=== PATIENT | male | born 1985 | race Two or more races ===

== ENCOUNTER 2025-09-25 18:37 | Emergency (ER) | payer MEDICAID, OTHER ==
[~2025-09-25] VITALS: Ht 193 cm; Wt 79.0 kg
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
[2025-09-25 20:07] LABS: Hematocrit 38.9 % (41.0-53.0); Hemoglobin 12.7 g/dL (13.5-17.5); Mean Corpuscular Hemoglobin 27.7 pg (28.0-32.0); Mean Corpuscular Volume 84.4 fL (80.0-100.0); Nucleated Red Blood Cells % 0.1 %
[2025-09-25 20:16] LABS: Potassium 4.0 mmol/L (3.5-5.1); Sodium 139 mmol/L (136-145)
[2025-09-25 20:17] LABS: Anion Gap 5 (5-15); Calcium 9.5 mg/dL (8.7-10.4); Carbon Dioxide 25 mmol/L (20-31)
[2025-09-25 20:22] LABS: BUN/Creatinine Ratio 15.1 (10.0-20.0); Blood Urea Nitrogen 13 mg/dL (9-23); Chloride 109 mmol/L (98-107); Glucose 78 mg/dL (74-106)
[2025-09-25 20:36] LABS: Lipase 27 U/L (12-53)
--- NOTE | 2025-09-25 21:28 | DVH ---
Exam: CT CT AB PEL WO CON-NO ORAL OR IV History: abd pain Comparison Study: None Technique: Multidetector spiral CT of the abdomen was performed from lung bases to pubic symphysis. Imaging was performed without IV contrast. Axial, coronal and sagittal multiplanar reformats were obtained from the axial data set by the technologist. Radiation Dose : 1. Abdomen/Pelvis: CTDIvol 5.72 mGy, DLP 331.97 mGy*cm. Findings: Evaluation of solid organs is limited due to lack of intravenous contrast use. Lung Bases: No acute or significant lung base finding. Normal heart size. No pleural or pericardial effusion. Liver: The liver is normal in size. No focal lesions. Gallbladder and Biliary Tree: Unremarkable Spleen: Unremarkable Pancreas: The pancreas is grossly normal in appearance. Adrenal Glands: Unremarkable Kidneys: Kidneys are grossly normal without calculi or hydronephrosis. Bladder: Grossly unremarkable for degree of distention. Bowel: Left lower quadrant colostomy is unremarkable. Anastomoses appear intact. No obstruction. Large volume of stool throughout the colon. Ascites: Absent Lymphadenopathy: No mesenteric, retroperitoneal or periportal lymphadenopathy. Abdominal Wall and Mesentery: Unremarkable. Vasculature: The visualized abdominal aorta is normal in size and caliber. Evaluation of abdominal and pelvic vessels is limited due to lack of intravenous contrast. Pelvic Organs: Unremarkable Musculoskeletal: No aggressive focal bony lesions, acute fractures or dislocation. IMPRESSION: No acute abdominal or pelvic findings. Radiation optimization: All CT scans at this facility use at least one of these dose optimization techniques: automated exposure control mA and/or kV adjustment per patient size (includes targeted exams where dose is matched to clinical indication) or iterative reconstruction.
[2025-09-25] MEDS: KETOROLAC TROMETH 30 MG/ML 1ML VIAL IM ONE (21:52)
[2025-09-25 21:56] VITALS: O2SAT 97
[2025-09-25 21:58] VITALS: BP 115/72; PULSE 72; RESP 20; TEMP 98.1; O2SAT 97
== END 2025-09-25 22:35 | disposition home or self-care (01) ==
LOC: ER 18:37
DX: K52.9 Noninfective gastroenteritis and colitis, unspecified (principal); Z93.3 Colostomy status
CPT/HCPCS: 36415; 74176; 80048; 83690; 85025; 96372; 99285; J1885

== ENCOUNTER 2025-09-26 00:38 | Emergency (ER) | payer MEDICAID ==
[~2025-09-26] VITALS: Ht 193 cm; Wt 86.6 kg
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
[2025-09-26 01:05] LABS: Hematocrit 37.8 % (41.0-53.0); Hemoglobin 12.6 g/dL (13.5-17.5); Mean Corpuscular Hemoglobin 27.9 pg (28.0-32.0); Mean Corpuscular Volume 83.6 fL (80.0-100.0); Nucleated Red Blood Cells % 0.0 %
[2025-09-26 01:48] LABS: Acetaminophen 14.0 UG/ML (10.0-20.0); Alanine Aminotransferase 14 U/L (7-40); Albumin 4.3 g/dL (3.2-4.8); Alkaline Phosphatase 89 U/L (46-116); Anion Gap 7 (5-15); BUN/Creatinine Ratio 18.0 (10.0-20.0); Blood Urea Nitrogen 16 mg/dL (9-23); Calcium 9.0 mg/dL (8.7-10.4); Carbon Dioxide 24 mmol/L (20-31); Potassium 3.9 mmol/L (3.5-5.1); Sodium 139 mmol/L (136-145); Total Protein 7.2 g/dL (5.7-8.2)
[2025-09-26 01:49] LABS: Bilirubin, Total 0.3 mg/dL (0.2-1.0)
[2025-09-26 01:59] LABS: Chloride 108 mmol/L (98-107); Glucose 120 mg/dL (74-106); Salicylate < 3.0 mg/dL (-30)
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
[2025-09-26 07:24] LABS: Amphetamine Screen, Urine Neg (NEGATIVE); Cannabinoid Screen, Urine Pos (NEGATIVE); Urine Protein, UAD TRACE (Negative)
[2025-09-26 07:37] LABS: Barbiturate Scree,Urine Neg (NEGATIVE); Benzodiazephine Screen, Urine Neg (NEGATIVE); Cocaine Screen, Urine Neg (NEGATIVE); Opiate Scree,Urine Neg (NEGATIVE); Phencyclidine Screen, Urine Neg (NEGATIVE)
[2025-09-26] MEDS: LITHIUM CARBONATE 300 MG TAB PO ONE (10:07)
[2025-09-26] MEDS: BENZTROPINE MESY 0.5 MG TAB PO ONE (10:07)
[2025-09-26] MEDS: IBUPROFEN 800 MG TAB PO ONE (10:08)
[2025-09-26] MEDS: risperiDONE 1 MG TAB PO ONE (10:08)
[2025-09-26 19:30] VITALS: PULSE 71; RESP 18; O2SAT 100
[2025-09-27 09:55] VITALS: BP 97/52; PULSE 107; RESP 16; TEMP 97.6; O2SAT 97
== END 2025-09-27 16:41 | disposition left against medical advice (07) ==
LOC: ER 00:38 → EDBD 00:38 → ER 09-27 16:41
DX: R45.851 Suicidal ideations (principal); F25.9 Schizoaffective disorder, unspecified; F19.10 Other psychoactive substance abuse, uncomplicated; Z79.899 Other long term (current) drug therapy
CPT/HCPCS: 36415; 71045; 80053; 80307; 80329; 81001; 84484; 85025; 93005

== ENCOUNTER 2025-10-25 08:56 | Emergency (ER) | payer MEDICAID ==
[~2025-10-25] VITALS: Ht 193 cm; Wt 76.2 kg
--- NOTE | 2025-10-25 09:29 | ED.PDOC ---
Psychiatric HPI Comments 40 y.o male with PMHx of schizophrenia and substance abuse. presents to the ED for an evaluation of mental health. Patient reports he is having visual and auditory hallucinations. He states voices are telling him to kill himself and states he has a plan by overdosing on substances. He admits to injecting drugs, states " I shoot up all types of drugs" and smokes marijuana. He presents with a colostomy with no bag attached. He is unsure how long he has not had a bag but states surgery took place around May of 2022. Non compliant to medication or care of the colostomy site. Chief Complaint: Suicidal Time Seen by MD: 09:20 Reviewed Notes: Nurses Notes, Medications, Allergies Information Source: Patient Mode of Arrival: Ambulatory Severity: Unable to Care for Self Severity of Pain: None Severity of Mental Status: Moderate Severity of Symptoms: Moderate Timing: Days Duration: Since onset Presents with: Suicidal Ideation Circumstance: Medical Clearance Current substance abuse: Unknown Stressors: None History of: Schizophrenia Quality: Hallucinations Associated signs and symptoms: Other Past Medical History PAST MEDICAL HISTORY: Schizophrenia Surgical History (Other): colostomy bag Family History Family History: Reviewed,noncontributory to illness, Unknown Social History Smoker: Non-Smoker Alcohol: Denies ETOH Use Drugs: Denies Drug Use Lives In: Home Constitutional: denies: chills, diaphoresis, fatigue, fever, malaise, sweats, weakness, others EENTM: denies: blurred vision, double vision, ear bleeding, ear discharge, ear drainage, ear pain, ear ringing, eye pain, eye redness, hearing loss, mouth pain, mouth swelling, nasal discharge, nose bleeding, nose congestion, nose pain, photophobia, tearing, throat pain, throat swelling, voice changes, others Respiratory: denies: cough, hemoptysis, orthopnea, SOB at rest, shortness of breath, SOB with excertion, stridor, wheezing, others Cardiovascular: denies: chest pain, dizzy spells, diaphoresis, Dyspnea on exertion, edema, irregular heart beat, left arm pain, lightheadedness, palpitations, PND, syncope, others Gastrointestinal: denies: abdomen distended, abdominal pain, blood streaked bowels, constipated, diarrhea, dysphagia, difficulty swallowing, hematemesis, melena, nausea, poor appetite, poor fluid intake, rectal bleeding, rectal pain, vomiting, others Genitourinary: denies: burning, dysuria, flank pain, frequency, hematuria, incontinence, penile discharge, penile sore, pain, testicle pain, testicle swelling, urgency, others Neurological: denies: dizziness, fainting, headache, left sided numbness, left sided weakness, numbness, paresthesia, pre-existing deficit, right sided numbness, right sided weakness, seizure, speech problems, tingling, tremors, weakness, others Musculoskeletal: denies: back pain, gout, joint pain, joint swelling, muscle pain, muscle stiffness, neck pain, others Integumetry: denies: bruises, change in color, change in hair/nails, dryness, laceration, lesions, lumps, rash, wounds, others Allergic/Immunocompromised: denies: Difficulty Healing, Frequent Infections, Hives, Itching, others Hematologic/Lymphatic: denies: anemia, blood clots, easy bleeding, easy bruising, swollen glands, others Endocrine: denies: excessive hunger, excessive sweating, excessive thirst, excessive urination, flushing, intolerance to cold, intolerance to heat, unexplained weight gain, unexplained weight loss, others Psychiatric: reports: schizophrenia, suicidal; denies: anxiety, bipolar disorder, depression, hopeless, panic disorder, sleepless, others All Other Systems: Reviewed and Negative Physical Exam General Appearance: Moderate Distress HEENT: Normal ENT Inspection, Pharynx Normal, TMs Normal Neck: Full Range of Motion, Non-Tender, Normal, Normal Inspection Respiratory: Chest Non-Tender, Lungs Clear, No Accessory Muscle Use, No Respiratory Distress, Normal Breath Sounds Cardiovascular: No Edema, No JVD, No Murmur, No Gallop, Normal Peripheral Pulses, Regular Rate/Rhythm Breast Exam: Deferred Gastrointestinal: Other (Stoma left lower extremity) Genitalia: Deferred Pelvic: Deferred Rectal: Deferred Extremities: No calf tenderness, Normal capillary refill, Normal inspection, Normal range of motion, Non-tender, No pedal edema Musculoskeletal : Apperance: Normal Neurologic: Alert, oyster grower II-XII nml as Tested, No Motor Deficits, Normal Affect, Normal Mood, No Sensory Deficits Cerebellar Function: Normal Reflexes: Normal Skin: Dry, Normal Color, Warm Peripheral Pulses: 3+ Radial (R), 3+ Radial (L) Lymphatic: No Adenopathy Was a procedure done? Was a procedure done?: No Psych Differential Dx Psych. Differential Dx: Schizoprenia Suicidal Differential Dx: Schizoprenia, Substance Abuse X-Ray, Labs, Meds, VS Vital Signs Date Time Temp Pulse Resp B/P (MAP) Pulse Ox O2 Delivery O2 Flow Rate FiO2 10/25/25 09:58 126 19 98 Room Air 10/25/25 09:58 97.5 126 19 119/91 (100) 98 97.5 10/25/25 08:59 98.1 120 20 121/91 95 98.1 Lab Test 10/25/25 09:40 Range/Units Urine Opiates Screen Neg NEGATIVE Urine Fentanyl Screen Neg NEGATIVE Urine Barbiturates Screen Neg NEGATIVE Urine Phencyclidine Screen Neg NEGATIVE Urine Amphetamines Screen Pos NEGATIVE Urine Benzodiazepines Screen Neg NEGATIVE Urine Cocaine Screen Neg NEGATIVE Urine Cannabinoids Screen Pos NEGATIVE Patient alert. Ambulating. Vitals stable. Answering questions. Hearing voices. Uses drugs. Has a stoma in place. No sign of any infection. Medically cleared. Psychiatric evaluation. Time of 1ST Reevaluation: 09:24 Reevaluation 1ST: Unchanged Patient Education/Counseling: Diagnosis, Treatment, Prognosis Family Education/Counseling: No Family Present Departure 1 Departure Time of Disposition: 11:05 Impression: Primary Impression: Suicidal ideation Disposition: 30 STILL A PATIENT Condition: Good Critical Care Note Critical Care Time?: No Stability Stability form required: No I personally scribed for RAIMUNDO ROOT MD ([email or web address]) on 10/25/25 at 09:29. Electronically submitted by Viky Marino ([facility]). RAIMUNDO ROOT MD Oct 25, 2025 09:29
[2025-10-25 10:52] LABS: Cannabinoid Screen, Urine Pos (NEGATIVE)
[2025-10-25 10:54] LABS: Amphetamine Screen, Urine Pos (NEGATIVE); Barbiturate Scree,Urine Neg (NEGATIVE); Benzodiazephine Screen, Urine Neg (NEGATIVE); Cocaine Screen, Urine Neg (NEGATIVE); Opiate Scree,Urine Neg (NEGATIVE); Phencyclidine Screen, Urine Neg (NEGATIVE)
[2025-10-25 12:00] VITALS: PULSE 95; RESP 20; O2SAT 98
[2025-10-25] MEDS: ACETAMINOPHEN 325 MG TAB PO ONE (16:03)
[2025-10-25] MEDS: LORazepam 2MG/ML-1ML VIAL IM ONE (17:21)
--- NOTE | 2025-10-25 18:08 | DVHINCON2 ---
Date of Service if different f: Oct 25, 2025 Time of Service: 05:45 Assessment and Plan ASSESSMENT AND PLAN Assessment and Plan The patient is a 40-year-old single male, currently homeless and unemployed, with a known history of schizophrenia and chronic noncompliance with medications and outpatient aftercare. He presented to the Emergency Department (ED) for evaluation of disorganized thinking and behavior. The patient was seen and evaluated by the bond writer in the ED via the telepsychiatry portal. On evaluation, he appeared disorganized, restless, and internally preoccupied, though he was not overtly responding to internal stimuli. He endorsed auditory hallucinations, which he stated were not command in nature, and denied visual hallucinations. He reported persistent paranoid ideation, stating that people are following him and are out to get him. The patient admitted to recurrent methamphetamine use, with last use reported as yesterday. He endorsed poor sleep but denied changes in appetite. Throughout the interview, he maintained poor eye contact and described feeling overwhelmed, frustrated, and increasingly irritable over the past several days, stating that he feels on edge. He endorsed feelings of helplessness and uselessness and admitted to passive suicidal ideation without a specific plan or intent at this time. He denied homicidal ideation. The patient reported a history of anxiety but denied symptoms consistent with agoraphobia, panic disorder, specific phobias, or social phobia. He denied current manic or hypomanic symptoms. Supportive therapy and psychoeducation were provided, including discussion of coping strategies, the importance of medication adherence, substance use cessation, and follow-up aftercare. The patient verbalized understanding and expressed agreement with the treatment plan. Review of Systems As per HPI and problem list. Otherwise: Constitutional: No symptoms reported Eyes / ENT: No symptoms reported Respiratory: No symptoms reported Cardiovascular: No symptoms reported Gastrointestinal: No symptoms reported Musculoskeletal: No symptoms reported Neurologic: No symptoms reported Psychiatric: See HPI Other systems: No significant findings Physical Examination Vital Signs Refer to nursing documentation Musculoskeletal / Neurological Normal body habitus Muscle strength and tone normal No spasticity or extrapyramidal symptoms noted Gait and station normal Mental Status Examination General Appearance: Middle-aged male examined at bedside; no acute physical distress; grooming and hygiene fair; normal musculoskeletal development; no abnormal movements observed Attitude: Alert and superficially cooperative Eye Contact: Poor Psychomotor Activity: No agitation or retardation Level of Consciousness: Awake and alert Orientation: Oriented to person, place, and time Mood: Okay Affect: Constricted, markedly reduced range Speech: Decreased rate, volume, and tone Cognition: Poor attention and concentration; impaired recent and remote memory Thought Process: Disorganized, illogical, and non-linear with loosened associations, tangentiality, flight of ideas, and rambling speech Thought Content: Auditory hallucinations, paranoid delusions, passive suicidal ideation without plan or intent; denies homicidal ideation Insight/Judgment: Poor Past Psychiatric History Diagnoses: Schizophrenia Psychiatric hospitalizations: Multiple prior admissions History of suicide attempts: Denies Outpatient care: Not currently engaged Medication trials: Olanzapine (Zyprexa) Substance Use History Tobacco: Not reported Alcohol: Not reported Cannabis: Not reported Other substances: Methamphetamine use; last use was about one week ago Past Medical History / Allergies Medical history: No acute medical concerns identified Allergies: No known drug allergies ([facility]) Social History Single Homeless Unemployed Denies access to firearms or weapons Denies service Denies history of physical, sexual, or emotional abuse Denies legal history including probation, parole, or incarceration Family Psychiatric History Denies known family psychiatric illness Assessment The patient presents with acute psychiatric decompensation characterized by disorganized thought processes, active psychotic symptoms, worsening paranoia, passive suicidal ideation, and ongoing methamphetamine use in the context of schizophrenia and medication noncompliance. His current presentation places him at high risk for further decompensation without inpatient stabilization. Diagnosis Psychiatric Diagnoses Schizophrenia F15.2 Amphetamine Use Disorder Medical Diagnoses No acute medical concerns identified Plan Admit to inpatient psychiatric unit for stabilization and continuation of care Obtain urine drug screen (UDS) Restart olanzapine:5 mg PO daily and 10 mg PO nightly. Risks, benefits, and alternatives discussed in detail. Please administer one-time dose now Continue supportive therapy and psychoeducation Initiate discharge planning once clinically stabilized Legal Status Voluntary My orders: None Plan discussed with: Other (DONNA BURKS) WANDA LYNN MD Oct 25, 2025 18:08
[2025-10-25] MEDS: LORazepam 0.5 MG TAB PO ONE (22:09)
[2025-10-25] MEDS: OLANZapine 5 MG TAB PO ONE (22:09)
[2025-10-26] MEDS: LORazepam 2MG/ML-1ML VIAL IM ONE ×3 (04:10→16:29)
[2025-10-26] MEDS ORDERED: LORazepam 2MG/ML-1ML VIAL IM ONE (04:15)
[2025-10-26 11:26] VITALS: TEMP 98
[2025-10-26] MEDS: diphenhydrAMINE HCL 50 MG/1 ML VL IV ONE (12:02)
[2025-10-26] MEDS: diphenhydrAMINE HCL 50 MG/1 ML VL IM ONE (13:51)
[2025-10-26 19:03] VITALS: BP 126/68; PULSE 74; RESP 18; O2SAT 98
[2025-10-26] MEDS: HALOPERIDOL LACTATE 5 MG/ML INJ VIAL ONE (23:24)
[2025-10-26] MEDS: HALOPERIDOL LACTATE 5 MG/ML INJ VIAL IM ONE (23:27)
== END 2025-10-27 07:45 | disposition left against medical advice (07) ==
LOC: ER 08:56
DX: R45.851 Suicidal ideations (principal); F20.9 Schizophrenia, unspecified
CPT/HCPCS: 80307; 96372; 99285; J1200; J1630; J2060

== ENCOUNTER 2025-10-27 07:33 | Emergency (ER) | payer MEDICAID ==
[~2025-10-27] VITALS: Ht 193 cm; Wt 79.7 kg
--- NOTE | 2025-10-27 08:06 | ED.PDOC ---
History of Present Illness HPI Comments 40-year-old male patient presents to the clinic for multiple complaints. Patient has history of schizophrenia and bipolar per patient. Patient is homeless. Patient has a colostomy present. Patient had a colostomy bags placed but patient removed the bag and states that it is better without the bag. Patient has a T-shirt around the site. Patient asking if he can stay in the hospital. Patient does not have any complaints that necessitate admission. Patient also states that he is unable to have a bowel movement for 3 years. Patient has stool at colostomy site Chief Complaint: Cough Time Seen by MD: 07:47 Reviewed Notes: Nurses Notes, Medications, Allergies Allergies: Coded Allergies: No Known Drug Allergy (Verified Allergy, Unknown, 09/25/25) Information Source: Patient Mode of Arrival: Ambulatory Past Medical History PAST MEDICAL HISTORY: Schizophrenia Family History Family History: Reviewed,noncontributory to illness, Unknown Social History Smoker: Non-Smoker Alcohol: Denies ETOH Use Drugs: Denies Drug Use Lives In: Home Constitutional: denies: chills, diaphoresis, fatigue, fever, malaise, sweats, weakness, others EENTM: denies: blurred vision, double vision, ear bleeding, ear discharge, ear drainage, ear pain, ear ringing, eye pain, eye redness, hearing loss, mouth pain, mouth swelling, nasal discharge, nose bleeding, nose congestion, nose pain, photophobia, tearing, throat pain, throat swelling, voice changes, others Respiratory: reports: cough; denies: hemoptysis, orthopnea, SOB at rest, shortness of breath, SOB with excertion, stridor, wheezing, others Cardiovascular: denies: chest pain, dizzy spells, diaphoresis, Dyspnea on exertion, edema, irregular heart beat, left arm pain, lightheadedness, palpitations, PND, syncope, others Gastrointestinal: reports: abdominal pain, constipated Genitourinary: denies: burning, dysuria, flank pain, frequency, hematuria, incontinence, penile discharge, penile sore, pain, testicle pain, testicle swelling, urgency, others Neurological: denies: dizziness, fainting, headache, left sided numbness, left sided weakness, numbness, paresthesia, pre-existing deficit, right sided numbness, right sided weakness, seizure, speech problems, tingling, tremors, weakness, others Musculoskeletal: denies: back pain, gout, joint pain, joint swelling, muscle pain, muscle stiffness, neck pain, others Integumetry: denies: bruises, change in color, change in hair/nails, dryness, laceration, lesions, lumps, rash, wounds, others Allergic/Immunocompromised: denies: Difficulty Healing, Frequent Infections, Hives, Itching, others Hematologic/Lymphatic: denies: anemia, blood clots, easy bleeding, easy bruising, swollen glands, others Endocrine: denies: excessive hunger, excessive sweating, excessive thirst, excessive urination, flushing, intolerance to cold, intolerance to heat, unexplained weight gain, unexplained weight loss, others Psychiatric: denies: anxiety, bipolar disorder, depression, hopeless, panic disorder, schizophrenia, sleepless, suicidal, others All Other Systems: Reviewed and Negative Physical Exam General Appearance: No Apparent Distress, Normal HEENT: Normal ENT Inspection, Pharynx Normal, TMs Normal Neck: Full Range of Motion, Non-Tender, Normal, Normal Inspection Respiratory: Chest Non-Tender, Lungs Clear, No Accessory Muscle Use, No Respiratory Distress, Normal Breath Sounds Cardiovascular: No Edema, No JVD, No Murmur, No Gallop, Normal Peripheral Pulses, Regular Rate/Rhythm Breast Exam: Deferred Gastrointestinal: No Organomegaly, Non Tender, No Pulsatile Mass, Soft, Other (Colostomy bag present with soft stool. No blood in stool) Genitalia: Deferred Pelvic: Deferred Rectal: Deferred Extremities: No calf tenderness, Normal capillary refill, Normal inspection, Normal range of motion, Non-tender, No pedal edema Musculoskeletal : Apperance: Normal Neurologic: Alert, director of physical education II-XII nml as Tested, No Motor Deficits, Normal Affect, Normal Mood, No Sensory Deficits Cerebellar Function: Normal Reflexes: Normal Skin: Dry, Normal Color, Warm Lymphatic: No Adenopathy Was a procedure done? Was a procedure done?: No Differential Dx Considerations may include: constipation, upper respiratory infection, schizophrenia X-Ray, Labs, Meds, VS Vital Signs Date Time Temp Pulse Resp B/P (MAP) Pulse Ox O2 Delivery O2 Flow Rate FiO2 10/27/25 07:35 98.1 64 16 113/92 96 98.1 X-Ray, Labs, Meds, VS Comment Patient is stable for discharge at this time. Patient advised to call [facility] followed for assistance with housing Patient verbalized understanding, discharge instructions and agrees to treatment plan Vital signs are stable Patient is ambulatory Patient advised of which symptoms necessitate a return visit to the emergency room. Patient to return emergency room for any new worsening symptoms. Patient is aware that the purpose of this visit is for an acute medical emerg ency requiring emergent stabilization. Chronic conditions, including malignancies have not been ruled out. Patient is instructed to follow up with PCP as directed for continued care and workup. If unable to arrange follow up, patient is to return to the emergency room for reassessment. Patient was given verbal and written discharge instructions and acknowledges understanding Time of 1ST Reevaluation: 08:18 Reevaluation 1ST: Improved Patient Education/Counseling: Diagnosis, Treatment, Prognosis Family Education/Counseling: No Family Present SEPSIS Sepsis Screen Date sepsis recognized/suspect: Oct 27, 2025 Time Sepsis recognized/suspect: 0735 Recent Procedure: No On Antibiotic Therapy: No Respiratory Rate >20: No Heart Rate >90: No Temp<36 C (96.8 F) or >38.3 C: No SBP <90 or MAP <65 mmHG: No New Acute Mental Status Change: No Is the patient on CPAP, BIPAP,: No Vital Signs Date Time Temp Pulse Resp B/P (MAP) Pulse Ox O2 Delivery O2 Flow Rate FiO2 10/27/25 07:35 98.1 64 16 113/92 96 98.1 Departure 1 Departure Time of Disposition: 08:18 Impression: Primary Impression: Schizophrenia Qualified Codes: F20.9 - Schizophrenia, unspecified Disposition: 01 HOME / SELF CARE / HOMELESS Condition: Stable Discharged With: Self Critical Care Note Critical Care Time?: No Stability Stability form required: No Heart Score Heart Score: Heart Score Response (Comments) Value History N/A 0 EKG N/A 0 Age N/A 0 Risk Factors N/A 0 Troponin N/A 0 Total 0 JOCELYNE BEST Oct 27, 2025 08:05
[2025-10-27 08:25] VITALS: BP 113/92; PULSE 64; RESP 16; TEMP 98.1; O2SAT 96
== END 2025-10-27 08:32 | disposition home or self-care (01) ==
LOC: ER 07:33
DX: F20.9 Schizophrenia, unspecified (principal); Z59.00 Homelessness unspecified